=== PATIENT | male | born 1950 | race Caucasian/White ===

== ENCOUNTER 2017-07-27 10:47 | Emergency (ER) | payer MEDICARE, MEDICAID ==
[~2017-07-27] VITALS: Ht 170.2 cm; Wt 89.0 kg
[~2017-07-27 10:47] MED LIST: ZOLP10TA PO
[2017-07-27 10:58] VITALS: BP 153/99
[2017-07-27] MEDS ORDERED: proparacaine 0.5% ophthalmic drops 15ml LEFTEYE ONE (12:15)
[2017-07-27] MEDS ORDERED: benoxinate/fluorescein ophth drops 5ml bottle ONE (12:27)
[2017-07-27] MEDS ORDERED: ERYT1OIN6 EACHEYE (12:36)
== END 2017-07-27 12:49 | disposition home or self-care (01) ==
LOC: ER 10:48
DX: H10.9 Unspecified conjunctivitis (principal); I10 Essential (primary) hypertension; F12.90 Cannabis use, unspecified, uncomplicated; Z98.890 Other specified postprocedural states; Z79.899 Other long term (current) drug therapy
CPT/HCPCS: 99283